=== PATIENT | male | born 2000 ===

== ENCOUNTER 2021-02-11 19:46 | Emergency (ER) | payer OTHER ==
[2021-02-11 20:30] LABS: BASOPHILS % (AUTO) 0.4 %; EOSINOPHILS # (AUTO) 0.4 10^3/uL (0.0-0.7); EOSINOPHILS % (AUTO) 3.2 %; HCT - HEMATOCRIT 48.1 % (42.0-52.0); HGB - HEMOGLOBIN 16.1 g/dL (14.0-18.0); LYMPHOCYTES # (AUTO) 2.2 10^3/uL (1.5-3.5); LYMPHOCYTES % (AUTO) 19.7 %; MEAN CORPUSCULAR HGB CONC 33.5 g/dL (32.0-36.0); MEAN CORPUSCULAR VOLUME 86.5 fL (80.0-94.0); MEAN PLATELET VOLUME 10.1 fL (7.4-11.4); MONOCYTES % (AUTO) 9.2 %; NEUTROPHILS # (AUTO) 7.6 10^3/uL (1.5-6.6); NEUTROPHILS % (AUTO) 67.3 %; PLT - PLATELET COUNT 300 10^3/uL (130-450); RED BLOOD COUNT 5.56 10^6/uL (4.70-6.10); RED CELL DISTRIBUTION WIDTH 12.2 % (12.0-15.0); WHITE BLOOD COUNT 11.3 x10^3/uL (4.8-10.8)
[2021-02-11 20:45] LABS: ALBUMIN/GLOBULIN RATIO 1.9 (1.0-2.2); CALCIUM 9.4 mg/dL (8.5-10.3); CREATININE 0.9 mg/dL (0.6-1.2); POTASSIUM 3.8 mmol/L (3.5-5.0); TOTAL PROTEIN 7.6 g/dL (6.7-8.2)
--- NOTE | 2021-02-11 20:46 | XRAY Report ---
PROCEDURE: Chest 1 View X-Ray INDICATIONS: Chest pain TECHNIQUE: One view of the chest was acquired. COMPARISON: None FINDINGS: Surgical changes and devices: None. Lungs and pleura: No pleural effusions or pneumothorax. Lungs are clear. Mediastinum: Mediastinal contours appear normal. Heart size is normal. Bones and chest wall: No suspicious bony lesions. Overlying soft tissues appear unremarkable. IMPRESSION: No acute pulmonary process. Reviewed by: Ana Laura Mitchell MD on 02/11/2021 8:45 PM PDT Approved by: Ana Laura Mitchell MD on 02/11/2021 8:45 PM PDT Station ID: [id number]
--- NOTE | 2021-02-11 22:05 | ED Physician Documentation ---
History of Present Illness - Stated complaint Stated Complaint: CHEST PAIN, SOA - Chief complaint Chief Complaint: Cardiac - History obtained from History obtained from: Patient - Additonal information Additional information: 20-year-old man, previously healthy, with family history of tachybradycardia syndrome in his mother who had a pacemaker placed at age 30 and coronary artery disease in his father who had a heart attack at 54 presents with chest painAnd shortness of breath sudden onset last night, intermittent around 2200, proving with shallow breathing and worse with deep breaths aching, located on the right upper chest, without associated cough, hemoptysis, leg swelling. Patient is PERC negative. Denies fevers, palpitations. Review of Systems Ten Systems: 10 systems reviewed and negative Constitutional: denies: Fever, Chills Cardiac: reports: Chest pain / pressure. denies: Palpitations Respiratory: reports: Dyspnea. denies: Cough GI: denies: Nausea PD PAST MEDICAL HISTORY - Past Medical History Past Medical History: No - Past Surgical History Past Surgical History: Yes General: Appendectomy HEENT: Tonsil/Adenoidectomy - Present Medications Home Medications: Ambulatory Orders Medication Instructions Recorded Confirmed No Known Home Medications 02/11/21 02/11/21 - Allergies Allergies/Adverse Reactions: Allergies Allergy/AdvReac Type Severity Reaction Status Date / Time No Known Drug Allergies Allergy Verified 02/11/21 19:49 - Social History Does the pt smoke?: No Smoking Status: Never smoker Does the pt drink ETOH?: No Does the pt have substance abuse?: No - Immunizations Immunizations are current?: Yes PD ED PE NORMAL - Vitals Vital signs reviewed: Yes - General General: Alert and oriented X 3, No acute distress, Well developed/nourished - HEENT HEENT: Atraumatic, PERRL, EOMI - Neck Neck: Supple, no meningeal sign - Cardiac Cardiac: RRR - Respiratory Respiratory: No respiratory distress, Clear bilaterally - Abdomen Abdomen: Non tender, Non distended - Derm Derm: Normal color - Extremities Extremities: No deformity - Neuro Neuro: Alert and oriented X 3 - Psych Psych: Normal mood, Normal affect Results - Vitals Vitals: Vital Signs - 24 hr 02/11/21 02/11/21 02/11/21 19:49 21:01 23:26 Temperature 36.6 C Heart Rate 90 83 88 Respiratory 16 21 16 Rate Blood Pressure 144/63 H 119/76 122/80 O2 Saturation 97 97 98 Oxygen O2 Source Room air - Labs Labs: Laboratory Tests 02/11/21 02/11/21 02/11/21 20:25 20:25 20:25 WBC 11.3 H RBC 5.56 Hgb 16.1 Hct 48.1 MCV 86.5 MCH 29.0 MCHC 33.5 RDW 12.2 Plt Count 300 MPV 10.1 Neut # (Auto) 7.6 H Lymph # (Auto) 2.2 [place] # (Auto) 1.0 Eos # (Auto) 0.4 Baso # (Auto) 0.0 Absolute Nucleated RBC 0.00 Nucleated RBC % 0.0 Sodium 137 Potassium 3.8 Chloride 100 L Carbon Dioxide 27 Anion Gap 10.0 BUN 14 Creatinine 0.9 Estimated GFR (MDRD) 108 Glucose 95 Calcium 9.4 Total Bilirubin 1.0 AST 22 ALT 19 Alkaline Phosphatase 57 Troponin I High Sens < 2.3 L Total Protein 7.6 Albumin 5.0 Globulin 2.6 Albumin/Globulin Ratio 1.9 Lipase 29 PD MEDICAL DECISION MAKING - ED course ED course: PERC negative. HEART score 1 (risk factor- family history). No focal findings on physical exam, vital signs, chest x-ray, lab work. EKG with some abnormalities that I discussed with Dr. El, cable former at [facility] . He is recommending an outpatient echocardiogram. I discussed with the patient and provided strict return precautions. He will follow up with his primary doctor for referral to have echocardiogram done at [facility]. Facesheet sent to Dr. Power. Departure - Departure Disposition: 01 Home, Self Care Clinical Impression: Chest pain, Shortness of breath Condition: Good Instructions: ED Chest Pain Pleurisy Follow-Up: Pinky El MD [Physician No Access] - Comments: You are seen in the emergency department for evaluation of chest pain. Your lab work, chest x-ray, vital signs and physical exam were unremarkable, but your EKG showed some mild changes that I discussed with cable former Dr. El at [facility]. He recommended to have an outpatient echocardiogram performed and requested that your primary doctor order it and have it done at [facility] in the next couple days. Please return to the emergency department if you have any new or worsening symptoms or other concerns. Discharge Date/Time: 02/11/21 23:40
[2021-02-11] MEDS ORDERED: ASPIRIN 325 MG TABLET PO STA (22:32)
[2021-02-11 23:27] VITALS: BP 122/80
== END 2021-02-11 23:40 | disposition home or self-care (01) ==
LOC: ED 19:46
DX: R07.9 Chest pain, unspecified (principal); R06.02 Shortness of breath; Z82.49 Family history of ischemic heart disease and other diseases of the circulatory system
CPT/HCPCS: 36415; 71045; 80053; 83690; 84484; 85025; 93005; 99283; 99284; A9270

== ENCOUNTER 2021-09-22 19:45 | Emergency (ER) | payer OTHER ==
--- NOTE | 2021-09-22 20:07 | ED Physician Documentation ---
PD HPI CHEST PAIN - Stated complaint Stated Complaint: CP/NO NAUSEA - Chief complaint Chief Complaint: Cardiac - History obtained from History obtained from: Patient - Additional information Additional information: 21-year-old gentleman has had episodic problems with chest pain for the last 6 months or so. He was initially seen in February for this, work-up here was negative and subsequently was referred to cardiology who deemed his chest pain to be noncardiac. Maybe once a month or so without specific trigger he will have pain for a few days. It is a sharp anterior chest pain that is worse with laying down, deep breathing and other movements of his chest. He is not short of breath. No nausea or sweats. He does have a family history of chest issues with his mom having tachybradycardia syndrome and his dad having coronary disease at a young age. No recent travel, pedal edema or calf pain. He does have known pectus excavatum and wonders if this might be causative. Review of Systems Constitutional: denies: Fever, Chills Cardiac: reports: Chest pain / pressure. denies: Palpitations, Pedal edema, Calf pain Respiratory: denies: Dyspnea, Cough, Hemoptysis, Wheezing PD PAST MEDICAL HISTORY - Past Medical History Past Medical History: No Cardiovascular: None Respiratory: None Neuro: None Endocrine/Autoimmune: None GI: None : None HEENT: None Psych: None Musculoskeletal: None Derm: None - Past Surgical History Past Surgical History: Yes General: Appendectomy HEENT: Tonsil/Adenoidectomy - Present Medications Home Medications: Ambulatory Orders Medication Instructions Recorded Confirmed No Known Home Medications 02/11/21 09/22/21 - Allergies Allergies/Adverse Reactions: Allergies Allergy/AdvReac Type Severity Reaction Status Date / Time No Known Drug Allergies Allergy Verified 09/22/21 19:58 - Social History Does the pt smoke?: No Smoking Status: Never smoker Does the pt drink ETOH?: Yes Does the pt have substance abuse?: No - Immunizations Immunizations are current?: Yes - POLST Patient has POLST: No PD ED PE NORMAL - Vitals Vital signs reviewed: Yes - General General: Alert and oriented X 3, No acute distress - HEENT HEENT: PERRL, EOMI - Neck Neck: Supple, no meningeal sign, No bony TTP - Cardiac Cardiac: RRR, No murmur, Other (Not able to reproduce his chest pain with palpation of the chest. He does have moderate pectus excavatum.) - Respiratory Respiratory: No respiratory distress, Clear bilaterally - Abdomen Abdomen: Non tender - Neuro Neuro: Alert and oriented X 3, Normal speech - Psych Psych: Normal mood, Normal affect Results - Vitals Vitals: Vital Signs - 24 hr 09/22/21 09/22/21 09/22/21 19:55 20:07 20:52 Temperature 36.8 C Heart Rate 88 94 84 Respiratory 16 18 20 Rate Blood Pressure 141/76 H 131/83 H 118/74 O2 Saturation 99 98 97 09/22/21 21:32 Temperature Heart Rate 92 Respiratory 16 Rate Blood Pressure 121/72 O2 Saturation 98 Oxygen O2 Source Room air - EKG (time done) 1950 Rate: Rate (enter#) (79) Rhythm: NSR [place]: Normal Intervals: Normal NE QRS: Normal Ischemia: Non specific changes (Benign early repolarization. Some change in his precordial transition likely related to lead placements but nothing ischemic appearing.) Computer interpretation: Agree with computer - Labs Labs: Laboratory Tests 09/22/21 20:27 Troponin I High Sens < 2.3 L PD MEDICAL DECISION MAKING - ED course ED course: 21-year-old gentleman with chest pain that sounds musculoskeletal. Potentially related to pectus excavatum. He said is not debilitating and he does not want any pain medications for it. I specifically recommended ibuprofen but he declined. Heart score 1 for family history only. Departure - Departure Disposition: 01 Home, Self Care Clinical Impression: Chest wall pain Condition: Good Record reviewed to determine appropriate education?: Yes Instructions: ED Chest Pain Costochondritis Comments: Call your doctor to arrange a follow-up appointment, make the next available appointment. In the interim, return anytime if worse or if new symptoms develop.
--- OUTSIDE RECORDS SUMMARY | 2021-09-22 20:19 | EXTERNAL MEDICAL SUMMARY RPT | Continuity of Care Document ---
:2000 Author Organization [facility] Address [address] [place] [address] Phone Care Team Providers Name Role Phone Miscellaneous, Doctor Unavailable Unavailable Allergies No information. Encounters No information. Medications No information. Problems date description facility [id number] Palpitations [facility] [id number] Chest pain, unspecified [facility] l [id number] Encounter for preprocedural laboratory examination [facility] [id number] Contact with and (suspected) exposure t o [facility] [place] [address] Results No information.
--- NOTE | 2021-09-22 20:26 | XRAY Report ---
PROCEDURE: Chest 1 View X-Ray INDICATIONS: Chest Pain TECHNIQUE: One view of the chest was acquired. COMPARISON: 02/11/2021 FINDINGS: Surgical changes and devices: None. Lungs and pleura: No pleural effusions or pneumothorax. Lungs are clear. Mediastinum: Mediastinal contours appear normal. Heart size is normal. Bones and chest wall: No suspicious bony lesions. Overlying soft tissues appear unremarkable. IMPRESSION: Stable examination of the chest. No acute cardiopulmonary abnormalities. No focal airspace disease. Reviewed by: Tristan Palmer MD on 09/22/2021 8:25 PM PDT Approved by: Tristan Palmer MD on 09/22/2021 8:25 PM PDT Station ID: [id number]
[2021-09-22 21:33] VITALS: BP 121/72
== END 2021-09-22 21:39 | disposition home or self-care (01) ==
LOC: ED 19:45
DX: R07.89 Other chest pain (principal)
CPT/HCPCS: 36415; 84484; 93005; 99282; 99284

== ENCOUNTER 2023-01-05 07:23 | Emergency (ER) | payer OTHER ==
--- NOTE | 2023-01-05 07:36 | ED Physician Documentation ---
PD HPI MALE - Stated complaint Stated Complaint: MALE - Chief complaint Chief Complaint: General - History obtained from History obtained from: Patient - History of Present Illness Timing - onset: How many weeks ago (had previously noted a small lump lower scrotum left side about 1-2 weeks ago. It felt bigger when felt it during shower this morning. NOt tender. No redness nor rash.) Timing - duration: Weeks (only noted it the past couple of weeks. No injury. No pain/tenderness. No dysuria.) Timing - details: Gradual onset Associated symptoms: No: Dysuria, Urinary frequency, Genital sore / lesion, Abdominal pain PD HPI MALE CONTRIB FACTORS: Sexually active Similar symptoms before: Has not had sx before Recently seen: Not recently seen Review of Systems Constitutional: denies: Fever, Chills : denies: Dysuria, Discharge Skin: denies: Rash, Lesions PD PAST MEDICAL HISTORY - Past Medical History Cardiovascular: None Respiratory: None Neuro: None Endocrine/Autoimmune: None GI: None : None HEENT: None Psych: None Musculoskeletal: None Derm: None - Past Surgical History Past Surgical History: Yes General: Appendectomy HEENT: Tonsil/Adenoidectomy - Present Medications Home Medications: Ambulatory Orders Medication Instructions Recorded Confirmed No Known Home Medications 02/11/21 01/05/23 - Allergies Allergies/Adverse Reactions: Allergies Allergy/AdvReac Type Severity Reaction Status Date / Time No Known Drug Allergies Allergy Verified 01/05/23 07:30 - Social History Does the pt smoke?: No Smoking Status: Never smoker Does the pt drink ETOH?: Yes Does the pt have substance abuse?: No - Immunizations Immunizations are current?: Yes - POLST Patient has POLST: No PD ED PE NORMAL - Vitals Vital signs reviewed: Yes - General General: Alert and oriented X 3, No acute distress, Well developed/nourished - Male Male : Other (no inguinal hernias nor adenopathy. Right scrotum normal. Left with normal testicle size, lie and good cremaster reflex. There is small bump inferior/posterior to lower part of testicle. This is not tender. Otherwise feels normal. ) - Back Back: No CVA TTP - Derm Derm: Normal color, Warm and dry, No rash Results - Vitals Vitals: Vital Signs - 24 hr 01/05/23 07:28 Temperature 36.0 C L Heart Rate 59 L Respiratory 20 Rate Blood Pressure 144/71 H O2 Saturation 97 Oxygen O2 Source Room air - Labs Labs: Laboratory Tests 01/05/23 07:36 Urine Color YELLOW Urine Clarity CLEAR Urine pH 5.5 Ur Specific [place] >=1.030 H Urine Protein NEGATIVE Urine Glucose (UA) NEGATIVE Urine Ketones NEGATIVE Urine Occult Blood NEGATIVE Urine Nitrite NEGATIVE Urine Bilirubin NEGATIVE Urine Urobilinogen 0.2 (NORMAL) Ur Leukocyte Esterase NEGATIVE Ur Microscopic Review NOT INDICATED Urine Culture Comments NOT INDICATED - Rads (name of study) ultrasound scrotal/testicle. Relevant Findings:: See rad report, Other (report from US tech is small varicocele. No other abnormalities. ) PD Medical Decision Making - ED course Complexity details: reviewed results (only varicocele found on US. Otherwise normal. ), considered differential (nontender small lump lower aspect of scrotum behind/inferior to testicle. Consider mass but most likely a small varicocele or hydrocele. Can get US. ), d/w patient Departure - Departure Disposition: 01 Home, Self Care Clinical Impression: Lump in scrotum, Varicocele Condition: Stable Record reviewed to determine appropriate education?: Yes Instructions: ED Varicocele Follow-Up: WILMER COYNE PA-C [Primary Care Provider] - Comments: The preliminary ultrasound report is only showing a small varicocele which is a dilation of a blood vessel. No abnormalities otherwise. This is benign. Follow-up with your primary care if you notice it getting consistently bigger or becomes tender. Otherwise no intervention needed and often will come and go. Forms: PCP List Discharge Date/Time: 01/05/23 09:58
[2023-01-05 07:42] VITALS: BP 144/71
[2023-01-05 08:07] LABS: BILIRUBIN,URINE NEGATIVE (NEGATIVE); CLARITY,URINE CLEAR (CLEAR); GLUCOSE, URINE (UA) NEGATIVE (NEGATIVE); KETONES,URINE (UA) NEGATIVE (NEGATIVE); LEUKOCYTE ESTERASE, URINE NEGATIVE (NEGATIVE); NITRITE,URINE NEGATIVE (NEGATIVE); OCCULT BLOOD,URINE NEGATIVE (NEGATIVE); PH,URINE 5.5 PH (5.0-7.5); PROTEIN,URINE NEGATIVE (NEGATIVE); UROBILINOGEN,URINE 0.2 (NORMAL) E.U./dL (NORMAL)
--- NOTE | 2023-01-05 10:15 | Ultrasound Report ---
PROCEDURE: Testicle w/Doppler INDICATIONS: left scrotal lump, inferior to testicle TECHNIQUE: Real-time scanning was performed of the scrotum and testicles, with image documentation. Color and p ulse Doppler interrogation was performed of both testicles. COMPARISON: None. FINDINGS: Right: Testicle is normal in size at 4.4 x 2.1 x 2.4 cm, and homogenous in echotexture. Epididymis is normal in overall size and morphology. No hydrocele or varicoceles. Overlying scrotal skin is no rmal in thickness. Left: Testicle is normal in size at 4.2 x 2.0 x 2.4 cm, and homogeneous in echotexture. Epididymis is normal in overall size and morphology. No hydrocele. A varicocele is present. This corresponds to the lump noted by the patient. Overlying scrotal skin is normal in thickness. Doppler: Color and pulse Doppler demonstrate normal and symmetric arterial flow in both testicles. IMPRESSION: There is a varicocele on the left which corresponds to the palpable abnormality noted. No other signi ficant findings. Reviewed by: Sheldon Jameson MD on 01/05/2023 10:13 AM PDT Approved by: Sheldon Jameson MD on 01/05/2023 10:13 AM PDT Station ID: [id number]
== END 2023-01-05 09:58 | disposition home or self-care (01) ==
LOC: ED 07:23
DX: I86.1 Scrotal varices (principal)
CPT/HCPCS: 81001; 81003; 87086; 93975; 99282; 99284

== ENCOUNTER 2024-01-18 08:46 | Outpatient (CLI) | payer OTHER ==
[2024-01-18] MEDS: ALBUTEROL 1 PUFF INH STA (15:00)
== END 2024-01-18 08:47 | disposition home or self-care (01) ==
LOC: RT 08:46
PROVIDERS: ATTEND Nurse Practitioner Family
DX: Q67.6 Pectus excavatum (principal); R06.02 Shortness of breath
CPT/HCPCS: 94010; 94060; 94664; 94727